=== PATIENT | female | born 1970 | race Caucasian/White ===

== ENCOUNTER 2017-10-23 11:41 | Emergency (ER) | END 2017-10-23 13:05 | disposition home or self-care (01) ==

== ENCOUNTER 2017-10-30 16:25 | Emergency (ER) | END 2017-10-30 17:15 | disposition home or self-care (01) ==

== ENCOUNTER 2018-01-29 13:08 | Emergency (ER) | END 2018-01-29 16:24 | disposition home or self-care (01) ==